=== PATIENT | male | born 1945 | race Caucasian/White ===

== ENCOUNTER 2024-01-01 17:09 | Emergency (ER) | payer MEDICARE ==
--- NOTE | 2024-01-01 17:17 | ERPHSYRPT ---
- History of Present Illness Time Seen by Provider: 01/01/24 17:16 Source: patient, family Exam Limitations: no limitations Physician History: This is a 78-year-old white male patient who arrives to the emergency department by private vehicle accompanied by his spouse. Patient ordinarily receives his medical care at the [facility]. The [facility] has arranged the patient to see urologist Dr. Reeves, overhead irrigator Dr. Austin, and the patient's nurse practitioner Guerrero today. Patient's spouse has stated that the patient has had more fatigue and is sleeping more than usual for him. Patient has a history of hypertension, diabetes and hyperlipidemia. The patient states that he has had an itching patch of skin in the right upper anterior chest wall which she has been scratching and there is an unexplained large bruise present. I reviewed outpatient labs that were drawn today approxi-1 hour prior to arrival. I did not repeat any of the studies since they are so recent. Patient was found to have a white blood cell count of 46 with 90% neutrophils. There is a hemoglobin level of 7.9 and a platelet count of 634. When I compared these labs to labs dated 10/27/2023, there is a marked difference in the hemoglobin and white blood cell count. On that date the white blood cell count was 16.2 and the hemoglobin is 10.5. Patient denies chest pain. Patient denies shortness of breath. He has no abdominal pain. Timing/Duration: today Severity: moderate Associated Symptoms: malaise, weakness, other (Sleepy, Fatigue) Allergies/Adverse Reactions: No Known Drug Allergies Allergy (Unverified 01/01/24 17:28) Home Medications: Alogliptin Benzoate [Alogliptin] 12.5 mg PO DAILY 01/01/24 [History] Amlodipine Besylate 10 mg PO DAILY 01/01/24 [History] Aspirin 81 gm Chew [Baby Aspirin 81 mg Chew] 81 mg PO BID 01/01/24 [History] Atorvastatin Calcium 40 mg PO DAILY 01/01/24 [History] Cyanocobalamin (Vitamin B-12) [Vitamin B-12] 1,000 mcg PO DAILY 01/01/24 [History] Empagliflozin [Jardiance] 10 mg PO DAILY 01/01/24 [History] Ezetimibe 10 mg [Zetia 10 MG] 10 mg PO DAILY 01/01/24 [History] Ferrous Sulfate 324 mg PO DAILY 01/01/24 [History] Glipizide 10 mg [Glucotrol 10 MG] 10 mg PO BID 01/01/24 [History] Hydrochlorothiazide 25 mg [hydroDIURIL 25 MG] 25 mg PO DAILY 01/01/24 [History] Lisinopril 20 mg [Zestril 20 MG] 20 mg PO DAILY 01/01/24 [History] Metformin HCl 500 mg [Glucophage 500 MG] 500 mg PO DAILY 01/01/24 [History] Metoprolol Tartrate 25 mg [Lopressor 25MG Tab] 37.5 mg PO BID 01/01/24 [History] Vit A/Vit C/Vit E/Zinc/Copper [Preservision Areds Tablet] 1 each PO BID 01/01/24 [History] Travel Risk - International Travel Have you traveled outside of the country in past 3 weeks: No - Emerging Infectious Disease Are you exhibiting symptoms associated with any current EIDs: No - Review of Systems Constitutional: Fatigue, Lethargy, Weakness Eyes: No Symptoms Ears, Nose, & Throat: No Symptoms Respiratory: No Symptoms Cardiac: No Symptoms Abdominal/Gastrointestinal: No Symptoms Genitourinary Symptoms: No Symptoms Musculoskeletal: No Symptoms Skin: Pruritis (Right upper anterior chest wall) Neurological: No Symptoms Psychological: No Symptoms Endocrine: No Symptoms Hematologic/Lymphatic: No Symptoms Immunological/Allergic: No Symptoms All Other Systems: Reviewed and Negative - Past Medical History Pertinent Past Medical History: Yes - Past Surgical History Past Surgical History: Yes - Nursing Vital Signs Nursing Vital Signs: Initial Vital Signs Temperature 97.7 F 01/01/24 17:15 Pulse Rate 95 H 01/01/24 17:15 Respiratory Rate 16 01/01/24 17:15 Blood Pressure 165/50 01/01/24 17:15 O2 Sat by Pulse Oximetry 96 01/01/24 17:15 Pain Scale Pain Intensity 0 - Physical Exam General Appearance: no apparent distress, alert, obese Eye Exam: PERRL/EOMI, eyes nml inspection Ears, Nose, Throat Exam: normal ENT inspection, moist mucous membranes Neck Exam: normal inspection, non-tender, supple, full range of motion Respiratory Exam: normal breath sounds, lungs clear, airway intact, No chest tenderness, No respiratory distress Cardiovascular Exam: regular rate/rhythm, normal heart sounds, normal peripheral pulses Gastrointestinal/Abdomen Exam: soft, normal bowel sounds, No tenderness Rectal Exam: not done Back Exam: normal inspection, normal range of motion, No CVA tenderness, No vertebral tenderness Extremity Exam: normal inspection, normal range of motion, pelvis stable Neurologic Exam: alert, oriented x 3, cooperative, 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7 H (9.4-12.5) SECONDS INR 1.28 (0.8-3.0) - Progress Progress: unchanged Progress Note: 01/01/24 18:41 My medical decision making and the assignment of moderate to high complexity of this patient's medical issue today is based on review of the patient's past medical history, review of the patient's medication list, review the patient's drug allergy list, review of the outpatient laboratory data results, review of the patient's history present illness and physical findings on examination. I did add a PT/INR to the patient's laboratory workup. CBC and CMP were performed just in our before the patient arrived to the emergency department. Differential diagnosis includes but is not limited to leukemia, infectious disease state, medication related disorder 01/01/24 20:33 I had spoken to Katie at the [facility] in [facility] regarding transferring this patient to a facility that has hematology. They contacted Dr. Borges, the line tender on at their facility. They ran the information by him regarding this patient and the laboratory workup findings. He feels this patient would be best served transferring him to [place] as he does not treat acute leukemia which is his clinical impression. We will contact the [facility] system for potential transfer 01/01/24 21:[address] Jones, the line tender at the [facility] in [facility]. I reviewed the patient history, presenting complaint, workup and the workup results. He accepts the patient in transfer. Counseled pt/family regarding: lab results, diagnosis Medical Desision Making - Independent Historian Additional History obtained from: Spouse - Diagnostic Testing Diagnostic test were ordered, analyzed, and reviewed by me: Yes - Risk of complications The pt has a high risk of morbidity or mortality based on: Decision regarding hospitilization or escalation of hosp level of care - Departure Departure Disposition: Transfer Clinical Impression: Acute leukemia Condition: Stable Critical Care Time: No Referrals: HOSPITAL,'S [Primary Care Provider] - Follow up/PCP as directed
[2024-01-01 17:28] VITALS: TEMP 97.7
[2024-01-01 18:21] LABS: INR 1.28 (0.8-3.0); PROTIME 13.7 SECONDS (9.4-12.5)
[2024-01-01 23:14] VITALS: PULSE 96
[2024-01-02 00:03] VITALS: BP 126/84; RESP 16; O2SAT 96
== END 2024-01-02 00:30 | disposition short-term general hospital (02) ==
LOC: ED 17:09
DX: C95.00 Acute leukemia of unspecified cell type not having achieved remission (principal); R53.83 Other fatigue; Z79.899 Other long term (current) drug therapy
CPT/HCPCS: 36000; 36415; 85610; 87040; 99284; 99285

== ENCOUNTER 2024-01-10 01:47 | Emergency (ER) | payer MEDICARE ==
[2024-01-10 02:18] LABS: Hematocrit 24.7 % (40.1-51.0); Hemoglobin 7.3 g/dL (13.7-17.5); Mean Cell Volume 82.3 fL (79.0-92.2); Mean Corpuscular Hemoglobin 24.3 pg (25.7-32.2); Mean Corpuscular Hgb Concent. 29.6 g/dL (32.3-36.5); Mean Platelet Volume 9.6 fL (9.4-12.4); Platelet Count 493 x10^3/uL (163-337)
[2024-01-10 02:20] VITALS: TEMP 99
[2024-01-10 02:22] LABS: White Blood Count 39.4 x10^3/uL (4.23-9.07)
[2024-01-10 02:33] LABS: ALBUMIN 2.7 g/dL (3.5-5.0); BILIRUBIN,TOTAL 0.4 mg/dL (0.2-1.3); Calcium 7.8 mg/dL (8.4-10.2); Creatinine 1 1.4 mg/dL (0.66-1.25); EST GLOMERULAR FILTRATION RATE 51.8 ML/MIN; Potassium 3.8 mmol/L (3.5-5.1)
--- NOTE | 2024-01-10 02:40 | ERPHSYRPT ---
- History of Present Illness Time Seen by Provider: 01/10/24 02:50 Source: patient, family Exam Limitations: no limitations Patient Subjective Stated Complaint: Fall while getting out of the car 2 days ago and hit back of his head on the rocks. No LOC. Increased weakness with possible blood in urine. Started on Eliquis recently. Slid in bathroom tonight and landed on knees and could not get him up off the floor. Triage Nursing Assessment: EMS brought patient here for a fall 2 days ago while attempting to get out of the car and into the house and hit back of head on the rocks. Stated has been having increased weakness since released from the [facility] for having blood in urine. Patient stated that he was not able to get back up. He was recently started on Eliquis. Denies any LOC. Physician History: 78-year-old male history of hypertension hypercholesterolemia diabetes patient at the [facility] presents to our ED with his for evaluation of fall 2 days ago. Patient reportedly fell outdoors and hit his head. Patient fell a second time today. called EMS for lift assist. In light of patient's second fall was concerned and advised that patient come to our ED for an evaluation. No obvious signs of head injury. No scalp contusions. reports that patient has been somewhat more weak than normal. Patient denies and states he feels fine. also reports possible hematuria. Patient denies abdominal pain and flank pain. Urinalysis ordered. They voiced no other complaints or concerns at this time. Portions of this note were created with voice recognition technology. There may be grammatical, spelling, punctuation or sound alike errors Timing/Duration: day(s) (2 days ago) Severity: moderate Modifying Factors: Improves With: nothing Associated Symptoms: denies symptoms Allergies/Adverse Reactions: No Known Drug Allergies Allergy (Unverified 01/10/24 02:21) Home Medications: Amlodipine Besylate 5 mg PO DAILY 01/01/24 [History] Atorvastatin Calcium 80 mg PO DAILY 01/01/24 [History] Cyanocobalamin (Vitamin B-12) [Vitamin B-12] 1,000 mcg PO DAILY 01/01/24 [History] Ezetimibe 10 mg [Zetia 10 MG] 10 mg PO DAILY 01/01/24 [History] Ferrous Sulfate 324 mg PO DAILY 01/01/24 [History] Glipizide 10 mg [Glucotrol 10 MG] 10 mg PO BID 01/01/24 [History] Metformin HCl 500 mg [Glucophage 500 MG] 500 mg PO BID 01/01/24 [History] Vit A/Vit C/Vit E/Zinc/Copper [Preservision Areds Tablet] 1 each PO BID 01/01/24 [History] Apixaban [Eliquis] 5 mg PO BID 01/10/24 [History] Carbamide Peroxide [Ear Wax Drops] 15 ml OT BID 01/10/24 [History] Cholecalciferol (Vitamin D3) [Vitamin D3] 1,000 unit PO DAILY 01/10/24 [History] Metoprolol Succinate 100 mg [Toprol Xl 100 MG] 100 mg PO DAILY 01/10/24 [H istory] SITagliptin [Sitagliptin] 100 mg PO DAILY 01/10/24 [History] Hx Tetanus, Diphtheria Vaccination/Date Given: Yes Hx Influenza Vaccination/Date Given: Yes Hx Pneumococcal Vaccination/Date Given: Yes Immunizations Up to Date: Yes Travel Risk - International Travel Have you traveled outside of the country in past 3 weeks: No - Emerging Infectious Disease Are you exhibiting symptoms associated with any current EIDs: No - Review of Systems Constitutional: No Symptoms, No Fever, No Chills Eyes: No Symptoms Ears, Nose, & Throat: No Symptoms Respiratory: No Symptoms, No Cough, No Dyspnea Cardiac: No Symptoms, No Chest Pain, No Edema, No Syncope Abdominal/Gastrointestinal: No Symptoms, No Abdominal Pain, No Nausea, No Vomi ting, No Diarrhea Genitourinary Symptoms: No Symptoms, No Dysuria Musculoskeletal: No Symptoms, No Back Pain, No Neck Pain Skin: No Symptoms, No Rash Neurological: No Symptoms, No Dizziness, No Focal Weakness, No Sensory Changes Psychological: No Symptoms Endocrine: No Symptoms Hematologic/Lymphatic: No Symptoms Immunological/Allergic: No Symptoms All Other Systems: Reviewed and Negative - Past Medical History Pertinent Past Medical History: Yes Cardiac History: High Cholesterol, Hypertension, Other Endocrine Medical History: Diabetes Type II Other Medical History: Acute Leukemia, Afib - Past Surgical History Past Surgical History: Yes Other Surgical History: skin cancer removed x2, - Social History Smoking Status: Former smoker Exposure to second hand smoke: No Drug Use: none - Social Determinants of Health Will the patient participate in the screening: Yes Do you worry about a steady place to live?: No Do you have any problems with any of the following?: No known problems In the past 12 months,have you had to go without utilities?: No Transportation Issues: No Has anyone in your support network made you feel unsafe?: No Have you or anyone in your house had to go without enough: No - Nursing Vital Signs Nursing Vital Signs: Initial Vital Signs Temperature 99.0 F 01/10/24 01:48 Pulse Rate 95 H 01/10/24 01:48 Respiratory Rate 20 01/10/24 01:48 Blood Pressure 160/104 01/10/24 01:48 O2 Sat by Pulse Oximetry 95 01/10/24 01:48 Pain Scale Pain Intensity 1 - Physical Exam General Appearance: no apparent distress, alert Eye Exam: PERRL/EOMI, eyes nml inspection Ears, Nose, Throat Exam: normal ENT inspection, TMs normal, pharynx normal, moist mucous membranes Neck Exam: normal inspection, non-tender, supple, full range of motion Respiratory Exam: normal breath sounds, lungs clear, airway intact, No respiratory distress Cardiovascular Exam: regular rate/rhythm, normal heart sounds, normal peripheral pulses Gastrointestinal/Abdomen Exam: soft, normal bowel sounds, No tenderness, No mass Back Exam: normal inspection, normal range of motion, No CVA tenderness, No vertebral tenderness Extremity Exam: normal inspection, normal range of motion, pelvis stable Neurologic Exam: alert, oriented x 3, cooperative, normal mood/affect, sensation nml, No motor deficits Skin Exam: normal color, warm, dry, No rash Lymphatic Exam: No adenopathy SpO2 Interpretation: normal SpO2: 95 O2 Delivery: Room Air - Course Nursing assessment & vital signs reviewed: Yes - CT Exams Head CT Interpretation: Tele-radiologist Report (No acute intracranial pathology) Ordered Tests: Active Orders 24 hr Category Date Time Status HEAD WITHOUT CONTRAST [CT] Stat Exams 01/10/24 01:50 Completed CBC W DIFF Stat Lab 01/10/24 02:15 Results CMP Stat Lab 01/10/24 01:50 Completed Manual Differential NC Stat Lab 01/10/24 02:15 Results Pathologist Review Stat Lab 01/10/24 02:15 Results UA W/RFX UR CULTURE Stat Lab 01/10/24 01:51 Completed Lab/Rad Data: Laboratory Result Diagrams 01/10/24 02:15 01/10/24 01:50 Laboratory Results 01/10/24 01/10/24 01/10/24 Range/Units 02:15 01:51 01:50 WBC 39.4 H* (4.23-9.07) x10^3/uL RBC 3.00 L (4.63-6.08) x10^6/uL Hgb 7.3 L (13.7-17.5) g/dL Hct 24.7 L (40.1-51.0) % MCV 82.3 (79.0-92.2) fL MCH 24.3 L (25.7-32.2) pg MCHC 29.6 L (32.3-36.5) g/dL RDW 20.0 H (11.6-14.4) % Plt Count 493 H (163-337) x10^3/uL MPV 9.6 (9.4-12.4) fL Segmented Neutrophils 89 H (34.0-67.9) % Band Neutrophils 2 (0.0-2.0) % Lymphocytes (Manual) 5 L (21.8-53.1) % Monocytes (Manual) 4 L (5.3-12.2) % Hypochromia 1+ Platelet Estimate INCREASED (NORMAL) RBC Morphology ABNORMAL Polychromasia 1+ Anisocytosis 2+ Microcytosis 2+ Smear Path Review Pending Sodium 140 (135-145) mmol/L Potassium 3.8 (3.5-5.1) mmol/L Chloride 107 (98-107) mmol/L Carbon Dioxide 27 (22-30) mmol/L Anion Gap 10.0 (5-15) MEQ/L BUN 24 H (9-20) mg/dL Creatinine 1.40 H (0.66-1.25) mg/dL Estimated GFR 51.8 ML/MIN Glucose 123 H (74-106) mg/dL Calcium 7.8 L (8.4-10.2) mg/dL Total Bilirubin 0.40 (0.2-1.3) mg/dL AST 27 (17-59) U/L ALT 25 (0-50) U/L Alkaline Phosphatase 218 H (38-126) U/L Serum Total Protein 6.0 L (6.3-8.2) g/dL Albumin 2.7 L (3.5-5.0) g/dL Urine Color Yellow (Yellow) Urine Appearance Turbid A (Clear) Urine pH 5.0 (4.6-8.0) Ur Specific Shubert 1.020 (1.005-1.030) Urine Protein 300 A (Negative) Urine Glucose (UA) Negative (Negative) mg/dL Urine Ketones Trace A (Negative) Urine Blood Negative (Negative) Urine Nitrite Negative (Negative) Urine Bilirubin Negative (Negative) Urine Urobilinogen 1.0 A (0.2) mg/dL Ur Leukocyte Esterase Negative (Negative) U Hyaline Cast (Auto) 11-20 (0-2) /LPF Urine Microscopic RBC 0-2 (0-5) /HPF Urine Microscopic WBC 3-5 (0-5) /HPF Ur Epithelial Cells Rare (None Seen) /HPF Uric Acid Crystals 6-10 A (None Seen) /HPF Urine Bacteria Few A (None Seen) /HPF Urine Culture Reflexed NO (NO) - Progress Progress: improved Progress Note: I spoke to Dr[facility] Sebasti[facility] monteist at the [facility] regarding our patient. We reviewed the labs in detail. He states that hemoglobin of 7.3 is stable as compared to the hemoglobin at the time that he was discharged from the [facility] last. He states that patient has a follow-up appointment with his primary care doctor on 15 January, next week. Patient agrees to follow-up as planned. 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 Patient being worked up for CML and metastatic melanoma. Patient and prefer to go home. Patient appears to be functioning at his baseline. CT head negative for acute intracranial pathology. No indication for further workup at this time. Will [facility] home [facility]. Patient and his at the bedside voiced no other complaints or concerns at this time. The leukocytosis of 39 appears to be trending downward as compared to the previous WBC of 46. Portions of this note were created with voice recognition technology. There may be grammatical, spelling, punctuation or sound alike errors Complexity of problem addressed is moderate acute complicated no critical care time. Complex of data reviewed and analyzed is extensive. Test ordered chest reviewed results analyzed and correlated clinically with history and physical examination. Management discussed with Dr. Lowery hospitalist at the [facility] who reviewed patient's chart with me and compared his current values to [facility]. Risk of complication and or risk of morbidity/mortality patient management is low. Vital stable. Time spent to discharge patient is approximately 20 minutes. Plan of care established for shared decision making. No social determinants of health present to impede follow-up. Portions of this note were created with voice recognition technology. There may be grammatical, spelling, punctuation or sound alike errors 01/10/24 04:05 Counseled pt/family regarding: lab results, diagnosis, need for follow-up, rad results - Departure Departure Disposition: Home Clinical Impression: Leukocytosis, Fall, Normocytic anemia, Chronic renal insufficiency, Generalized weakness, Hypoalbuminemia, Proteinuria Condition: Good Critical Care Time: No Referrals: HOSPITAL,'S [Primary Care Provider] - Follow up/PCP as directed Additional Instructions: Discharge/Care Plan RANI CESAR was seen on 01/10/24 in the Emergency Room. The patient was counseled regarding Diagnosis,Lab results, Imaging studies, need for follow up and when to return to the Emergency Room. Prescriptions given: Discharge Note I have spoken with the patient and/or caregivers. I have explained the patient's condition, diagnosis and treatment plan based on the information available to me at this time. I have answered the patient's and/or caregiver's questions and addressed any concerns. The patient and/or caregivers have as good understanding of the patient's diagnosis, condition and treatment plan as can be expected at this point. The vital signs have been stable. The patient's condition is stable and appropriate for discharge from the emergency department. The patient will pursue further outpatient evaluation with the primary care physician or other designated or consulting physician as outlined in the discharge instructions. The patient and/or caregivers are agreeable to this plan of care and follow-up instructions have been explained in detail. The patient and/or caregivers have received these instruction. The patient/and or caregivers are aware that any significant change in condition or worsening of symptoms should prompt an immediate return to this or the closest emergency department or call 911.
--- NOTE | 2024-01-10 03:05 | XRAY ---
CLINICAL HISTORY: trauma COMPARISON: None. TECHNIQUE: Multiple axial images are obtained from the skull base to the vertex without contrast. CT scan was performed according to ALARA (as low as reasonable achievable). FINDINGS: There is cerebral atrophy. No evidence of space occupying lesion, hemorrhage, edema, mass effect, midline shift, extra axial collection, or hydrocephalus is noted. Basal cisterns are symmetric and normal in size and configuration. There are scattered periventricular hypodensities as can be seen with chronic microvascular ischemic changes. The goncalves-white matter differentiation is preserved. Visualized paranasal sinuses and mastoid air cells are well aerated. Orbital contents are within normal limits. Bony structures are intact. IMPRESSION: 1. No evidence of acute intracranial abnormality is demonstrated. 2. Chronic microvascular ischemic changes. 3. Cerebral atrophy. Electronically Signed by: Aleksandr Barnes MD. (01/10/2024 03:00:51 EST)
[2024-01-10 03:15] LABS: BAND 2 % (0.0-2.0); Lymphocytes 5 % (21.8-53.1); Monocyte 4 % (5.3-12.2); Neutrophils 89 % (34.0-67.9); Total Cells Counted 100
[2024-01-10 03:16] LABS: ANISOCYTOSIS 2+; Hypochromia 1+; Microcytosis 2+; Platelet Estimate INCREASED (NORMAL); Polychromasia 1+
[2024-01-10 03:23] LABS: Appearance Turbid (Clear); Bilirubin Negative (Negative); Blood Negative (Negative); Epithelial Cells Rare /HPF (None Seen); Glucose, Urine Negative (Negative); Ketones Trace (Negative); Leukocyte Esterase Negative (Negative); Nitrite Negative (Negative); Protein,Urine Dip 300 (Negative); RBC 0-2 /HPF (0-5)
[2024-01-10 03:25] LABS: Bacteria Few /HPF (None Seen)
[2024-01-10 04:03] VITALS: BP 136/82; PULSE 92; RESP 20
[2024-01-10 04:05] VITALS: O2SAT 95
== END 2024-01-10 04:15 | disposition home or self-care (01) ==
LOC: ED 01:47
DX: D72.829 Elevated white blood cell count, unspecified (principal); D64.9 Anemia, unspecified; N18.9 Chronic kidney disease, unspecified; R53.1 Weakness; R80.9 Proteinuria, unspecified; E88.09 Other disorders of plasma-protein metabolism, not elsewhere classified; W01.198A Fall on same level from slipping, tripping and stumbling with subsequent striking against other object, initial encounter; Z91.81 History of falling; Z79.01 Long term (current) use of anticoagulants; Z79.899 Other long term (current) drug therapy
CPT/HCPCS: 36415; 70450; 80053; 81001; 85025; 99283; 99284